=== PATIENT | female | born 1955 | race Caucasian/White ===

== ENCOUNTER 2018-05-12 00:28 | Inpatient (IN) | payer MEDICARE ==
[2018-05-11 15:01] LABS: INR 0.92
--- NOTE | 2018-05-11 23:27 | LEVENE H&P ---
DATE OF ADMISSION: May 12, 2018 IDENTIFICATION/CHIEF COMPLAINT Beverly is a 63-year-old woman with a chief complaint of right knee pain. HISTORY OF PRESENT ILLNESS Patient has a longstanding history of right knee pain, progressively painful and debilitating and refractory to conservative care. Surgery is indicated to relieve symptoms after failure of nonoperative measures. ALLERGIES TALWIN, which causes hives. CURRENT MEDICATIONS 1. Levothyroxine 112 mcg a day. 2. Cymbalta 60 mg a day. 3. Lisinopril/hydrochlorothiazide 10/12.5 p.o. daily. 4. Diclofenac 75 mg p.o. b.i.d. 5. Lorazepam 2 mg, two tablets at bedtime. 6. Crestor 10 mg p.o. daily. 7. Ropinirole 3 mg b.i.d. p.o. 8. Tresiba 20 units p.o. daily. 9. NovoLog sliding scale. 10. [place] as needed. 11. Vitamins. PAST MEDICAL HISTORY Notable for: 1. Diabetes. 2. Hypertension. 3. Remote history of blood transfusion after back surgery. 4. Hypothyroidism. PAST SURGICAL HISTORY 1. Hysterectomy. 2. Ankle surgery. 3. Wrist surgery x2. 4. Hand surgery. 5. Knee surgery. 6. Spinal surgery. 7. Cornea surgery. SOCIAL HISTORY Negative for tobacco use. She drinks alcohol, about two to four drinks a couple times a month. Denies abuse. REVIEW OF SYSTEMS Negative. FAMILY HISTORY Notable for a sister with rheumatoid arthritis, multiple sisters with lung cancer, another sister with lupus, and a sister with COPD. PHYSICAL EXAMINATION GENERAL: This is a healthy female. HEENT: Normocephalic, atraumatic. NECK: Supple. LUNGS: Clear. HEART: Regular rate. ABDOMEN: Soft. ORTHOPEDIC: The right knee has an effusion present. She has valgus deformity. She is stiff at the end of range. Gross stability is good. Extensor function intact. Radiographs demonstrate degenerative joint disease, most severely affecting the lateral compartment. ASSESSMENT Right knee end-stage degenerative joint disease, progressively painful and debilitating, refractory to conservative care. PLAN Per patient request, we are going to proceed with right total knee arthroplasty. We will inject the left knee with corticosteroid at the same setting to mitigate symptoms and facilitate rehab. Nature of the procedure, risks, benefits, and anticipated rehab course were reviewed. Risks include but not are not limited to , major medical or anesthetic complication, infection, neurovascular injury, blood transfusion, stiffness, scarring, fracture, tendon rupture, implant loosening, migration, or failure, persistent or recurrent pain, need for additional surgery and other unforeseen. She understands and wishes to proceed. Signed permit is placed in the chart. No guarantees are given or implied. GREGG
[2018-05-12] VITALS (14 sets, daily range): BP systolic 93–122; BP diastolic 41–86
[~2018-05-12] VITALS: Ht 167.6 cm; Wt 96.2 kg
[~2018-05-12 00:28] MED LIST: ASCO1TAB PO; ASPI81TA94 PO; ATOR20TA22 PO; CALC-649 PO; CHOL100062 PO; CRAN1CAP2 PO; CRAN200C5 PO; DICL-190 PO; DULO60CA56 PO; FLUT16SP19 NS; HYDR-318 PO; HYDR-389 PO; INSU100C14 SQ; INSU100I8 SQ; INSU100V24 SQ; INSU300I SQ; LANI SUBQ; LEVO112T44 PO; LEVO125T77 PO; LISI-351 PO; LORA-636 PO; MAGN300C3 PO; MELO-150 PO; POTA99TA6 PO; ROPI2TAB27 PO; ROPI3TAB18 PO; ROS10 PO; SERT-1 PO; UBID100C48 PO
[2018-05-12] MEDS ORDERED: PREGABALIN 150 MG CAPSULE PO ONE (09:35)
[2018-05-12] MEDS ORDERED: ACETAMINOPHEN 500 MG TAB PO ONE (09:35)
[2018-05-12] MEDS ORDERED: CELECOXIB 200 MG CAP PO ONE (09:35)
[2018-05-12] MEDS ORDERED: MIDAZOLAM 2 MG/2 ML VIAL IVP PRN (10:15)
[2018-05-12] MEDS ORDERED: KET INJ ONE (10:15)
[2018-05-12] MEDS ORDERED: NORMOSOL R SOLN(*) 1000 ML BAG 1,000 ML IV PRN ×2 (10:15→16:15)
[2018-05-12] MEDS ORDERED: FAMOTIDINE 20 MG TAB PO ONE (10:15)
[2018-05-12] MEDS ORDERED: ceFAZolin(*) 2GM/D5W 50ML 50 ML IVPB ONE (10:15)
[2018-05-12] MEDS ORDERED: LIDOCAINE/SOD BICARB 8.4% SYR ID ONE (10:15)
[2018-05-12] MEDS ORDERED: [UNRECOGNIZED DRUG - OTHER] INJ ONE (10:15)
[2018-05-12] MEDS ORDERED: CLON INJ ONE (10:15)
[2018-05-12] MEDS ORDERED: TRANEXAMIC AC 1000 MG/10ML SDV 1,000 MG in DEXTROSE 5% 50 ML BAG 50 ML IV ONE (10:15)
[2018-05-12] MEDS ORDERED: EPI INJ ONE (10:15)
[2018-05-12] MEDS ORDERED: ROPIVACAINE/EPI/CLONIDINE/KET 50 ML SYRINGE INJ ONE (10:15)
[2018-05-12] MEDS ORDERED: VANCOMYCIN 1 GM VIAL ONE (10:58)
[2018-05-12] MEDS ORDERED: TRIAMCINOLONE ACE(*) 40 MG/ML 1 ML ONE (11:01)
[2018-05-12] MEDS ORDERED: BUPIVACAINE 0.5% INJ 50ML VIAL INFIL ONE (11:01)
[2018-05-12] MEDS ORDERED: DEXTROSE 50% 50 ML SYR IVP ONE (11:25)
[2018-05-12] MEDS ORDERED: ONDANSETRON 4 MG/2 ML VIAL ONE (11:34)
[2018-05-12] MEDS ORDERED: HYDROmorphone HCL 2 MG/ML SDV ONE (11:34)
[2018-05-12] MEDS ORDERED: PROPOFOL EMUL(*) 10MG/ML 20 ML 40 ML ONE (11:34)
[2018-05-12] MEDS ORDERED: ROPIVACAINE 0.5% 20 ML VIAL ONE (11:34)
[2018-05-12] MEDS ORDERED: DEXAMETHASONE SOD PHOS 10MG/ML ONE (11:34)
[2018-05-12] MEDS ORDERED: fentaNYL CITR 100 MCG/2 ML AMP ONE (13:23)
[2018-05-12] MEDS ORDERED: KETOROLAC 15 MG/ML VIAL ONE (13:24)
--- NOTE | 2018-05-12 14:13 | RADIOLOGY IMAGING REPORT ---
FACILITY: [facility] [place] PATIENT NAME: Beverly Markham : 1955 MR: [id number] V: [id number] EXAM DATE: ORDERING PHYSICIAN: LAWANDA LAZO TECHNOLOGIST: Location: [facility] Patient: Beverly Markham : 1955 Visit/Account:[id number] Date of Sevice: 05/12/2018 Exam type: KNEE LIMITED RIGHT History: Postop Comparison: None. Findings: AP and crosstable lateral views of the right knee demonstrate a right knee arthroplasty in good anato garrick alignment. Soft tissue gas and skin viktoria project over the anterior aspect of the right knee IMPRESSION: 1. As above Report Dictated By: Nicolette Wilcox MD at 05/12/2018 2:07 PM Report E-Signed By: Nicolette Wilcox MD at 05/12/2018 2:08 PM WSN:[id number]
[2018-05-12] MEDS ORDERED: DICL-195 PO (15:00)
--- NOTE | 2018-05-12 16:04 | Hospitalist Consultation ---
History of Present Illness Requesting Physician Dr. Ziegler Reason for Consult Medical Management Chief Complaint s/p left knee replacement History of Present Illness She was admitted s/p left knee replacement. It is reported the surgery went well and without complication. History Problems: (1) Hypertension Status: Chronic (2) JUJU (obstructive sleep apnea) Status: Chronic (3) Depression Status: Chronic (4) Hypothyroidism Status: Chronic (5) Hyperlipidemia Status: Chronic (6) Type 2 diabetes mellitus Status: Chronic (7) Iron deficiency anemia Status: Chronic Home Meds Reported Medications Diclofenac Sodium (DICLOFENAC SODIUM) 75 Mg Tablet.dr, 75 MG PO BID, TAB 05/12/18 Magnesium Oxide/Mag Aa Chelate (MAGNESIUM 300 MG CAPSULE) 300 Mg Capsule, 200 MG PO DAILY PRN for LEG CRAMPS, CAPSULE 05/08/18 Insulin Degludec (Tresiba Flextouch U-100) 100 Unit/Ml (3 Ml) Insuln.pen, 20 SQ DAILY 05/08/18 Ropinirole Hcl (ROPINIROLE HCL) 3 Mg Tablet, 3 MG PO BID 05/08/18 Levothyroxine Sodium (SYNTHROID) 125 Mcg Tablet, 125 MCG PO QDAY 05/08/18 Rosuvastatin Calcium (CRESTOR) 10 Mg Tab, 10 MG PO QDAY, #5 TAB 05/08/18 Hydrocodone/Acetaminophen (Lortab 7.5-325 mg Tablet) 1 Each Tablet, 1 TAB PO Q4H PRN for PAIN, #30 10/15/16 Cranberry Conc/Ascorbic Acid (CRANBERRY 12,600 MG SOFTGEL) 1 Each Capsule, 1 EACH PO BID, CAPSULE 10/08/16 Calcium Carbonate/Vitamin D3 (CALCIUM 600 + VIT D 200 TABLET) 1 Each Tablet, 2 EACH PO DAILY 10/08/16 Insulin Aspart (NOVOLOG) 100 Unit/1 Ml Cartridge, 2-7 UNIT SQ SS 10/08/16 Lorazepam (LORAZEPAM) 2 Mg Tablet, 2 TAB PO QHS 10/08/16 Lisinopril/Hydrochlorothiazide (LISINOPRIL-HCTZ 10-12.5 MG TAB) 1 Each Tablet, 1 EACH PO DAILY 10/08/16 Ascorbate Calcium/Bioflavonoid (ANNALISA-C 1,000 MG TABLET) 1 Each Tablet, 1 EACH PO DAILY 10/16/15 Duloxetine Hcl (CYMBALTA) 60 Mg Capsule.dr, 60 MG PO QDAY, #5 CAP 10/16/15 Discontinued Reported Medications Cranberry Extract (CRANBERRY) 200 Mg Capsule, 2 TAB PO DAILY, CAPSULE 05/08/18 Diclofenac Potassium (DICLOFENAC POTASSIUM) 50 Mg Tablet, 75 MG PO BID, TAB 10/08/16 Fluticasone Prop 50 Mcg Ns (FLONASE 50 MCG NS) 16 Gm [place].susp, 2 SPRAYS NS QDAY, BOT 10/08/16 Potassium Gluconate (POTASSIUM) 99 Mg Tablet, 99 MG PO DAILY 10/08/16 Aspirin (ASPIRIN) 81 Mg Tab.chew, 81 MG PO QDAY, TAB.CHEW 10/08/16 Ubidecarenone (COQ-10) 100 Mg Capsule, 100 MG PO DAILY, CAPSULE 10/08/16 Insulin Glargine,Hum.rec.anlog (Reta Agarwal) 300 Unit/1 Ml Insuln.pen, 34 SQ DAILY 10/08/16 Atorvastatin Calcium (LIPITOR) 20 Mg Tablet, 1 TAB PO QDAY, TAB 10/08/16 Levothyroxine Sodium (SYNTHROID) 112 Mcg Tablet, 112 MCG PO QDAY, TAB 10/08/16 Sertraline Hcl (ZOLOFT) 50 Mg Tablet, 1 TAB PO afternoon, TAB 10/16/15 Ropinirole Hcl (REQUIP) 2 Mg Tablet, 1-2 TAB PO HS 10/16/15 Allergies: Coded Allergies: pentazocine (Verified Allergy, Intermediate, hives, 05/08/18) Uncoded Allergies: hayfever (Adverse Reaction, Mild, 10/16/15) Patient History: FH: COPD (chronic obstructive pulmonary disease) BROTHER OR SISTER FH: diabetes mellitus BROTHER OR SISTER FH: lung cancer BROTHER OR SISTER FH: lupus BROTHER OR SISTER FH: stroke BROTHER OR SISTER Hx Smoking: No Smoking Status: Never Smoker Exposure to Second Hand Smoke?: No Caffeine Intake: Coffee Caffeine/Cups Per Day: 2/3 C./DAY Hx Alcohol Use: Yes Hx Substance Use Disorder: No Social Drug Use: Never History of IV Drug Use: No Review of Systems All Systems Reviewed/Normal: Yes, Except as Noted Exam Vital Signs Vital Signs Date Time Temp Pulse Resp B/P (MAP) Pulse Ox O2 Delivery O2 Flow Rate FiO2 05/12/18 14:50 90 16 94 12/4/18 10:28 97.5 112/71 (85) Room Air General Appearance: Alert, Awake, No Acute Distress, Afebrile Neuro: No Gross deficits Cardiovascular: Regular Rate and Rhythm Respiratory: No Respiratory Distress, Clear to Auscultation Psych: Alert & Oriented X3, Appropriate Mood & Affect Assessment and Plan Problems: (1) Status post left knee replacement Status: Acute Assessment & Plan: She will be placed on Aspirin for DVT prophylaxis. (2) Type 2 diabetes mellitus Status: Chronic Assessment & Plan: She is on chronic treatment with sliding scale insulin and Tresiba (long acting insulin). She did bring Tresiba to use during admission. She will be placed on AC/HS sugar checks, ADA diet, and sliding scale insulin #2. (3) Hypertension Status: Chronic Assessment & Plan: She is on chronic treatment with Lisinopril and Hydrochlorothiazide. These have been restarted with hold parameters. (4) Hypothyroidism Status: Chronic Assessment & Plan: She is on chronic treatment with Levothyroxine. (5) Hyperlipidemia Status: Chronic Assessment & Plan: She is on chronic treatment with Rosuvastatin. (6) Depression Status: Chronic Assessment & Plan: She is on chronic treatment with Cymbalta. (7) JUJU (obstructive sleep apnea) Status: Chronic Assessment & Plan: Recently diagnosed. She has not received her machine yet. (8) Iron deficiency anemia Status: Chronic Assessment & Plan: She does take iron chronically. Venous Thromboembolism Antithrombotics Is Pt On Any Antithrombotics?: No [employer] LOAN UNDERWRITER May 12, 2018 16:04
[2018-05-12] MEDS ORDERED: ZOLPIDEM TARTRATE 5 MG TAB PO PRN (16:15)
[2018-05-12] MEDS ORDERED: FLUSH 10 ML SYR IVP PRN (16:15)
[2018-05-12] MEDS ORDERED: ACETAMINOPHEN 325 MG TAB PO PRN (16:15)
[2018-05-12] MEDS ORDERED: diphenhydrAMINE 25 MG CAP PO PRN (16:15)
[2018-05-12] MEDS ORDERED: PROMETHAZINE 25 MG/ML 1 ML AMP IVP PRN (16:15)
[2018-05-12] MEDS ORDERED: MAGNESIUM HYDROXIDE* 30ML UDCP PO PRN (16:15)
[2018-05-12] MEDS ORDERED: diphenhydrAMINE 50 MG/ML VIAL IVP PRN (16:15)
[2018-05-12] MEDS ORDERED: BENZOCAINE/MENTHOL 1 EACH LOZG PO PRN (16:15)
[2018-05-12] MEDS ORDERED: BISACODYL 10 MG SUPP PR PRN (16:15)
--- NOTE | 2018-05-12 16:34 | OPERATIVE REPORT 1 ---
EVENT DATE: May 12, 2018 SURGEON: Nick Ziegler MD ANESTHESIOLOGIST: Shiv Garcia MD ANESTHESIA: General plus adductor canal block. ICING MAKER: PATO Jones PREOPERATIVE DIAGNOSIS Right knee degenerative joint disease. POSTOPERATIVE DIAGNOSIS Right knee degenerative joint disease. PROCEDURE PERFORMED Right total knee arthroplasty. ESTIMATED BLOOD LOSS Minimal. DRAINS None. SPECIMENS None. COMPLICATIONS None apparent. TOURNIQUET TIME 41 minutes IMPLANTS USED InfoReachathlon knee system with a 3 right PS femur, 4 standard tibial baseplate, 33 mm universal, symmetric, all-polyethylene patellar button, and an 11 mm PS tibial tray liner. Polyethylene is X3. INDICATIONS Beverly is a 63-year-old woman with intractable pain related to right knee arthritis. Surgery is indicated to relieve symptoms after failure of nonoperative measures. DESCRIPTION OF PROCEDURE Patient taken to the operating room, placed supine on the operating table. General anesthesia is induced after an adductor canal block is administered by the anesthesiologist. Antibiotics are administered IV along with TXA. Right lower extremity is prepped and draped in the usual sterile fashion for orthopedic surgery. Limb is exsanguinated with an Esmarch bandage. Tourniquet is inflated to 275 mmHg. Midline longitudinal incision made, carried down through the skin and subcutaneous tissue to the extensor mechanism. Full- thickness flaps are developed far enough medially to allow medial parapatellar arthrotomy be performed. Patella is everted. Knee is brought into the flexed position. Fat pad, anterior horns of the menisci, and the cruciate ligaments are debrided. A subperiosteal capsule release is performed circumferentially 1 cm around the upper plateau to start to balance the knee. A step drill is used to enter the distal femur. A 10-inch long alignment guide is used to engage the isthmus. Cut set is for 6 degrees of valgus relative to the anatomic axis. A 10 mm resection block is applied, pinned, and cuts made with an oscillating saw. AP sizing guide is applied to the distal femoral cut, positioned for 3 degrees of external rotation relative to the posterior condyles. Size 3 is optimal without risk of notching. The four-in-one cutting block is applied. Anterior, posterior, posterior chamfer, and anterior chamfer cuts are made respectively. PS block is applied and centered. Medial and lateral bone is removed from the box. Trial femur has nice fit. Attention turned to tibial preparation. The extramedullary guide is applied, positioned for varus, valgus, posterior slope, and rotation. This is set to resect 2 mm from the relatively deficient lateral tibial plateau. It is dropped down a millimeter or two to ensure an adequate cut. The block is pinned. Extramedullary alignment check is made. Cuts made with an oscillating saw. Gaps are balanced and symmetric with no additional releases required. The size 4 tibial baseplate provides optimum bony coverage without soft tissue overhang. This is inserted along with the trial liner and the trial femur. Knee is brought to extension. Patella is taken from the starting thickness of 21 to a residual of 14 with a patellar clamp and oscillating saw. The 33 provides optimum bony coverage without soft tissue overhang. Lug holes are drilled. Patella tracks nicely with the no-touch technique. Final tibial preparation consists of assuring appropriate rotational and translational positioning of the component. The boss is reamed. Fin is punched. Surfaces are lavaged. Bone block is placed in the femoral canal. A mix of methacrylate is made and the components cemented in a single stage. Once the cement is fully polymerized, tourniquet is deflated. Hemostasis is assured. All debris is washed from the wound. The 11 PS tibial tray liner fills up the gap ideally, allowing the knee to drop to full extension without hyperextension, providing optimal soft tissue tension and stability. The tray is lavaged and dried, and the liner is locked into the baseplate. Joint is reduced. Arthrotomy is closed in flexion with #2 Ethibond. Vancomycin powder is placed deep in the wound. Subcutaneous tissue is lavaged. Hemostasis is assured. Derm is closed with 3-0 Vicryl, skin with surgical viktoria. Xeroform 4 x 4's applied as a dry, sterile dressing and a compression wrap. The patient is awakened from anesthesia and taken to the recovery room in stable condition having tolerated the procedure well. PLAN Plan is for standard TKA rehab protocol. [facility]
[2018-05-12] MEDS: CELECOXIB 200 MG CAP PO SCH (16:59)
[2018-05-12] MEDS: APAP/HYDROCODONE 325/7.5 TAB PO PRN ×3 (16:59→22:16)
[2018-05-12] MEDS: INSULIN HUM LISPRO 100 UN/ML 3 ML VIAL SUBQ PRN ×2 (17:25→21:13)
[2018-05-12] MEDS: DIAZEPAM 5 MG TAB PO PRN (22:16)
[2018-05-12] MEDS ORDERED: NS(*) 0.9% 250 ML BAG 250 ML ONE (22:16)
[2018-05-12] MEDS: ceFAZolin(*) 1 GM VIAL 1 GM in NS(*) 0.9% 100 ML ADDVANT BAG 100 ML IVPB SCH (22:16)
[2018-05-13 00:21] VITALS: BP 116/64
[2018-05-13 03:43] VITALS: BP 113/67
[2018-05-13] MEDS: DIAZEPAM 5 MG TAB PO PRN ×3 (04:11→18:52)
[2018-05-13] MEDS: APAP/HYDROCODONE 325/7.5 TAB PO PRN ×5 (04:11→20:49)
[2018-05-13] MEDS: LEVOTHYROXINE SOD 0.125 MG TAB PO SCH (06:25)
[2018-05-13] MEDS: ceFAZolin(*) 1 GM VIAL 1 GM in NS(*) 0.9% 100 ML ADDVANT BAG 100 ML IVPB SCH ×2 (06:25→13:48)
[2018-05-13 07:34] VITALS: BP 120/69
[2018-05-13] MEDS: ASPIRIN 325 MG TAB PO SCH (08:37)
[2018-05-13] MEDS: ROSUVASTATIN CALCIUM 10 MG TAB PO SCH (08:37)
[2018-05-13] MEDS: LISINOPRIL 10 MG TAB PO SCH (08:38)
[2018-05-13] MEDS: HYDROCHLOROTHIAZIDE 25 MG TAB PO SCH (08:38)
[2018-05-13] MEDS: CELECOXIB 200 MG CAP PO SCH ×2 (08:39→16:35)
[2018-05-13] MEDS: DULoxetine HCL 30 MG CAPCR PO SCH (08:39)
[2018-05-13] MEDS: INSULIN DEGLUDEC 100 UNIT/ML SC SCH (08:41)
[2018-05-13] MEDS: INSULIN HUM LISPRO 100 UN/ML 3 ML VIAL SUBQ PRN ×3 (08:43→16:39)
--- NOTE | 2018-05-13 11:01 | Hospitalist Progress Note ---
Subjective Progress Notes Subjective She has had elevated glucose levels since surgery. Otherwise, she has no complaints. Patient Complains of: Cardiovascular: No: Chest Pain Respiratory: No: Shortness of Breath Physical Exam Vital Signs Date Time Temp Pulse Resp B/P (MAP) Pulse Ox O2 Delivery O2 Flow Rate FiO2 05/13/18 07:34 98.7 85 16 120/69 (86) 87 Room Air 05/13/18 03:43 2.5 Intake and Output 05/12/18 23:58 Intake Total 400 ml Balance 400 ml Intake Oral 300 ml IV Total 100 ml # Voids 1 # Bowel Movements 0 General Appearance: Alert, Awake, No Acute Distress, Afebrile Neuro: No Gross deficits Cardiovascular: Regular Rate and Rhythm Respiratory: No Respiratory Distress, Clear to Auscultation Psych: Alert & Oriented X3, Appropriate Mood & Affect Assessment and Plan Problems: (1) Status post left knee replacement Status: Acute Assessment & Plan: She will be placed on Aspirin for DVT prophylaxis. (2) Type 2 diabetes mellitus Status: Chronic Assessment & Plan: She is on chronic treatment with sliding scale insulin and Tresiba (long acting insulin). She did bring Tresiba to use during admission. She will be placed on AC/HS sugar checks, ADA diet, and sliding scale insulin. Her sliding scale insulin will be increased to level #3 today. (3) Hypertension Status: Chronic Assessment & Plan: She is on chronic treatment with Lisinopril and Hydrochlorothiazide. These have been restarted with hold parameters. (4) Hypothyroidism Status: Chronic Assessment & Plan: She is on chronic treatment with Levothyroxine. (5) Hyperlipidemia Status: Chronic Assessment & Plan: She is on chronic treatment with Rosuvastatin. (6) Depression Status: Chronic Assessment & Plan: She is on chronic treatment with Cymbalta. (7) JUJU (obstructive sleep apnea) Status: Chronic Assessment & Plan: Recently diagnosed. She has not received her machine yet. (8) Iron deficiency anemia Status: Chronic Assessment & Plan: She does take iron chronically. Exam Sepsis Risk: No Definite Risk [employer] OPERATOR May 13, 2018 11:01
[2018-05-13 13:43] VITALS: BP 112/65
[2018-05-13 14:40] VITALS: Ht 167.6 cm; Wt 96.2 kg
[2018-05-13] MEDS: INSULIN HUM LISPRO 100 UN/ML 3 ML VIAL SUBQ SCH (16:38)
[2018-05-13 17:17] VITALS: BP 116/76
[2018-05-13 19:43] VITALS: BP 112/72
[2018-05-14] MEDS: DIAZEPAM 5 MG TAB PO PRN ×2 (01:00→08:40)
[2018-05-14] MEDS: APAP/HYDROCODONE 325/7.5 TAB PO PRN ×2 (01:01→05:37)
[2018-05-14 03:57] VITALS: BP 118/62
[2018-05-14] MEDS: LEVOTHYROXINE SOD 0.125 MG TAB PO SCH (05:37)
[2018-05-14 06:45] VITALS: BP 123/63
[2018-05-14] MEDS: CELECOXIB 200 MG CAP PO SCH (07:59)
[2018-05-14] MEDS: INSULIN HUM LISPRO 100 UN/ML 3 ML VIAL SUBQ PRN (08:00)
[2018-05-14] MEDS ORDERED: HYDR-654 PO (08:04)
[2018-05-14] MEDS: HYDROCHLOROTHIAZIDE 25 MG TAB PO SCH (08:41)
[2018-05-14] MEDS: DULoxetine HCL 30 MG CAPCR PO SCH (08:41)
[2018-05-14] MEDS: ROSUVASTATIN CALCIUM 10 MG TAB PO SCH (08:41)
[2018-05-14] MEDS: LISINOPRIL 10 MG TAB PO SCH (08:41)
[2018-05-14] MEDS: INSULIN HUM LISPRO 100 UN/ML 3 ML VIAL SUBQ SCH (08:41)
[2018-05-14] MEDS: ASPIRIN 325 MG TAB PO SCH (08:41)
[2018-05-14] MEDS: INSULIN DEGLUDEC 100 UNIT/ML SC SCH (09:00)
[2018-05-14] MEDS ORDERED: ASPI-757 PO (09:02)
--- NOTE | 2018-05-14 10:57 | Hospitalist Progress Note ---
Subjective Progress Notes Subjective She has no complaints this morning. She had no acute events overnight. Patient Complains of: Cardiovascular: No: Chest Pain Respiratory: No: Shortness of Breath Physical Exam Vital Signs Date Time Temp Pulse Resp B/P (MAP) Pulse Ox O2 Delivery O2 Flow Rate FiO2 05/14/18 08:08 92 05/14/18 08:04 Room Air 05/14/18 06:45 98.4 84 16 123/63 (83) 05/14/18 03:57 1.0 Intake and Output 05/14/18 07:00 Intake Total 580 ml Balance 580 ml Intake Oral 480 ml IV Total 100 ml # Voids 2 General Appearance: Alert, Awake, No Acute Distress, Afebrile Neuro: No Gross deficits Cardiovascular: Regular Rate and Rhythm Respiratory: No Respiratory Distress, Clear to Auscultation Psych: Alert & Oriented X3, Appropriate Mood & Affect Assessment and Plan Problems: (1) Status post left knee replacement Status: Acute Assessment & Plan: She will be placed on Aspirin for DVT prophylaxis. (2) Type 2 diabetes mellitus Status: Chronic Assessment & Plan: She is on chronic treatment with sliding scale insulin and Tresiba (long acting insulin). She did bring Tresiba to use during admission. She was placed on AC/HS sugar checks, ADA diet, and sliding scale insulin. Her sliding scale insulin was increased to level #3. She has increased blood glucoses after surgery secondary to steroid injection. She will increase her sliding scale at home, and follow up with her PCP within a week for further recommendations. (3) Hypertension Status: Chronic Assessment & Plan: She is on chronic treatment with Lisinopril and Hydrochlorothiazide. She will hold her medications for two days, then resume. If she feels dizzy, she will stop the medication and follow up with her PCP. (4) Hypothyroidism Status: Chronic Assessment & Plan: She is on chronic treatment with Levothyroxine. (5) Hyperlipidemia Status: Chronic Assessment & Plan: She is on chronic treatment with Rosuvastatin. (6) Depression Status: Chronic Assessment & Plan: She is on chronic treatment with Cymbalta. (7) JUJU (obstructive sleep apnea) Status: Chronic Assessment & Plan: Recently diagnosed. She has not received her machine yet. (8) Iron deficiency anemia Status: Chronic Assessment & Plan: She does take iron chronically. Exam Sepsis Risk: No Definite Risk [facility]COM STONER [facility] May 14, 2018 10:56
== END 2018-05-14 10:30 | disposition home or self-care (01) | DRG 470 ==
LOC: OR 00:28 → MED 14:50
PROVIDERS: ADMIT Orthopaedic Surgery; ATTEND Orthopaedic Surgery
PROC: 0SRC0J9 Replacement of Right Knee Joint with Synthetic Substitute, Cemented, Open Approach (ICD-10-PCS; principal; 2018-05-12 11:24)
DX: M17.11 Unilateral primary osteoarthritis, right knee (principal); M21.061 Valgus deformity, not elsewhere classified, right knee; I10 Essential (primary) hypertension; G47.33 Obstructive sleep apnea (adult) (pediatric); E11.9 Type 2 diabetes mellitus without complications; F32.9 Major depressive disorder, single episode, unspecified; E03.9 Hypothyroidism, unspecified; E78.5 Hyperlipidemia, unspecified; D64.9 Anemia, unspecified; Z79.4 Long term (current) use of insulin; Z90.710 Acquired absence of both cervix and uterus
CPT/HCPCS: 36415; 36416; 76942; 82948; 85610; 86850; 86900; 86901; 97161; C1713; C1776; J0690; J1100; J1170; J1885; J2250; J2405; J2704; J2795; J3010; J3301; J3370; J3490; J7050; J7060